=== PATIENT | female | born 1975 | race Caucasian/White ===

== ENCOUNTER 2023-07-09 11:14 | Emergency (ER) | payer BC, MEDICAID, OTHER ==
[2023-07-09 11:47] LABS: APPEARANCE,URINE CLOUDY (CLEAR); BILIRUBIN,URINE NEGATIVE (NEGATIVE); GLUCOSE,URINE NEGATIVE (NEGATIVE); KETONES,URINE NEGATIVE (NEGATIVE); LEUKOCYTE ESTERASE,URINE SMALL (NEGATIVE); NITRITE,URINE NEGATIVE (NEGATIVE); OCCULT BLOOD,URINE LARGE (NEGATIVE); PROTEIN,URINE 100 mg/dL (NEGATIVE); UROBILINOGEN,URINE 0.2 EU/dL (0.2-1.0)
[2023-07-09 11:53] LABS: BASOPHILS ABSOLUTE AUTO 0.04 K/uL (0.00-0.10); BASOPHILS PERCENT AUTO 0.6 % (0.1-1.3); EOSINOPHILS ABSOLUTE AUTO 0.13 K/uL (0.00-0.40); EOSINOPHILS PERCENT AUTO 1.9 % (0.0-5.4); HEMATOCRIT 40.4 % (34.3-46.0); IMMATURE GRAN PERCENT AUTO 0.3 % (0.0-0.7); LYMPHOCYTES ABSOLUTE AUTO 1.46 K/uL (0.8-3.3); LYMPHOCYTES PERCENT AUTO 21.1 % (11.4-47.7); MEAN CORPUSCULAR HEMOGLOBIN 29.5 pg (31.6-35.5); MEAN CORPUSCULAR HGB CONC 34.7 g/dL (31.6-35.5); MEAN CORPUSCULAR VOLUME 85.1 fL (81.4-99.0); MONOCYTES ABSOLUTE AUTO 0.41 K/uL (0.20-0.90); MONOCYTES PERCENT AUTO 5.9 % (3.3-12.6); NEUTROPHILS ABSOLUTE AUTO 4.87 K/uL (1.0-7.6); NEUTROPHILS PERCENT AUTO 70.2 % (40.0-78.1); PLATELET COUNT,PLT 192 K/uL (130-375); RED BLOOD CELL COUNT 4.75 M/uL (3.77-5.24); WHITE BLOOD CELL COUNT,WBC 6.9 K/uL (3.2-11.0)
[2023-07-09 11:57] LABS: IMMATURE GRAN ABSOLUTE AUTO 0.02 K/uL (0.00-0.23)
[2023-07-09 12:00] LABS: COLOR,URINE OTHER (YELLOW)
[2023-07-09] MEDS ORDERED: Sodium Chloride 0.9% 1,000 ML IV ONE (12:00)
[2023-07-09] MEDS ORDERED: Ketorolac 15 MG/ML SDV IVPUSH ONE (12:00)
[2023-07-09 12:01] LABS: AMORPHOUS SEDIMENT,URINE NOT SEEN; BACTERIA,URINE FEW; EPITHELIAL CELLS,URINE MODERATE; MUCUS,URINE MODERATE; RBC,URINE 50-75 (0-5)
[2023-07-09 12:07] LABS: BLOOD UREA NITROGEN,BUN 10 mg/dL (7-18); CALCIUM 8.4 mg/dL (8.5-10.1); CARBON DIOXIDE,CO2 22 mmol/L (21-32); CHLORIDE,CL 103 mmol/L (100-108); CREATININE 0.8 mg/dL (0.6-1.0); ESTIMATED GFR 92 mL/min (>60); GLUCOSE RANDOM 177 mg/dL (74-106); POTASSIUM,K 3.8 mmol/L (3.6-5.2); SODIUM,NA 136 mmol/L (140-148)
[2023-07-09 12:08] LABS: ANION GAP 14.8 mmol/L (5.0-14.0)
[2023-07-09] MEDS ORDERED: Tamsulosin 0.4 MG Cap.ER PO ONE (12:43)
== END 2023-07-09 13:45 | disposition home or self-care (01) ==
LOC: JP.ED 11:14
DX: N13.2 Hydronephrosis with renal and ureteral calculous obstruction (principal); Z90.49 Acquired absence of other specified parts of digestive tract; Z90.710 Acquired absence of both cervix and uterus; Z87.891 Personal history of nicotine dependence
CPT/HCPCS: 36415; 74176; 74176-26; 80048; 81001; 85025; 96361; 96374; 99284; 99284-25; A9270-GY; J1885; J7030